=== PATIENT | male | born 1975 | race Hispanic/Latino ===

== ENCOUNTER 2016-10-21 22:32 | Emergency (ER) | payer SELFPAY ==
[~2016-10-21] VITALS: Ht 167.6 cm; Wt 78.8 kg
[~2016-10-21 22:32] MED LIST: ADDERALL12.5 MG PO; APAP/HYDRO325 MG/10 PO; BACTRIM DS1 TAB PO; CIPROFLOXACN500 MG PO; CLONAZEPAM1 MG PO; FLAGYL500 MG OR; GABAPENTIN100 MG PO; KEFLEX500 M1 PO; MEDDOSEPAK OR; MUPIROCIN2 % EX; NORCO1 TA1 PO; PHENERGAN12.5 MG/TA PO; TAM75CAP PO; TRAMADOL HCL50 MG PO; ULTRAM50 M1 PO; ZOFRAN ODT4 MG PO
[2016-10-21 23:00] LABS: HEMATOCRIT 45.9 % (39.0-50.0); HEMOGLOBIN 15.9 g/dl (14.0-18.0); IMMATURE GRANULOCYTES 0.3 % (0.0-1.0); MEAN CELL VOLUME 87.1 fL CALC (80.0-100.0); MEAN CORPUSCULAR HGB 30.2 pG CALC (26.0-32.0); MEAN CORPUSCULAR HGB CONC 34.6 g/L CALC (32.0-36.0); NEUT# 3.96 thou/uL (1.82-7.42); RED BLOOD COUNT 5.27 mill/uL (4.70-6.10); RED CELL DISTRI WIDTH 11.8 % (11.5-15.5)
[2016-10-21 23:17] LABS: ALBUMIN 4.8 g/dL (3.2-5.0); ALKALINE PHOSPHATASE 74 u/l (38-126); ANION GAP 18 (6-22 (CALC)); BILIRUBIN, TOTAL 1.1 mg/dL (0.0-1.4); BUN 22 mg/dL (9-20); BUN/CREATININE RATIO 22 (12-20 (CALC)); CARBON DIOXIDE 24 mmol/l (22-30); CHLORIDE 107 mmol/l (95-108); GFR > 60 ML/MIN (>=60 (CALC)); GFR FOR AFR.AMER. > 60 ML/MIN (>=60 (CALC)); GLUCOSE 107 mg/dL (75-110); POTASSIUM 3.7 mmol/l (3.5-5.1); SGOT/AST 20 u/l (17-59); SGPT/ALT 28 u/l (21-72); SODIUM 146 mmol/l (137-146); TOTAL PROTEIN 7.2 g/dL (6.3-8.2)
[2016-10-21 23:26] LABS: URINE BILIRUBIN - DIPSTICK NEGATIVE (NEGATIVE); URINE BLOOD DIPSTICK NEGATIVE (NEGATIVE); URINE CLARITY CLOUDY; URINE COLOR YELLOW; URINE GLUCOSE - DIPSTICK NEGATIVE (NEGATIVE); URINE KETONE NEGATIVE (NEGATIVE); URINE LEUK ESTERASE NEGATIVE (NEGATIVE); URINE NITRITE - DIPSTICK NEGATIVE (Negative); URINE PH 5.5 (4.5-8.0); URINE PROTEIN - DIPSTICK NEGATIVE (NEG-TRACE); URINE SPECIFIC GRAVITY >=1.030; URINE UROBILINOGEN - DIPSTICK 0.2 E.U./dL (0.2)
[2016-10-21] MEDS ORDERED: MOTRIN800 MG PO (23:38)
[2016-10-21 23:58] VITALS: BP 118/81
== END 2016-10-21 23:50 | disposition home or self-care (01) | DRG 556 ==
LOC: ED 22:32
PROVIDERS: Emergency Medicine
DX: M25.522 Pain in left elbow (principal); M25.561 Pain in right knee; M25.521 Pain in right elbow; M25.562 Pain in left knee; X50.3XXA Overexertion from repetitive movements, initial encounter; Y93.89 Activity, other specified; Y92.89 Other specified places as the place of occurrence of the external cause

== ENCOUNTER 2017-03-19 19:16 | Emergency (ER) | payer BC ==
[~2017-03-19] VITALS: Ht 167.6 cm; Wt 85.0 kg
[~2017-03-19 19:16] MED LIST changes: +MOTRIN800 MG PO
[2017-03-19 19:56] LABS: URINE BILIRUBIN - DIPSTICK NEGATIVE (NEGATIVE); URINE BLOOD DIPSTICK LARGE (NEGATIVE); URINE COLOR YELLOW; URINE GLUCOSE - DIPSTICK NEGATIVE (NEGATIVE); URINE KETONE NEGATIVE (NEGATIVE); URINE LEUK ESTERASE NEGATIVE (NEGATIVE); URINE NITRITE - DIPSTICK NEGATIVE (Negative); URINE PROTEIN - DIPSTICK NEGATIVE (NEG-TRACE); URINE SPECIFIC GRAVITY >=1.030; URINE UROBILINOGEN - DIPSTICK 0.2 E.U./dL (0.2)
[2017-03-19 20:04] LABS: HEMATOCRIT 47.7 % (39.0-50.0); HEMOGLOBIN 16.3 g/dl (14.0-18.0); IMMATURE GRANULOCYTES 0.1 % (0.0-1.0); MEAN CELL VOLUME 87.5 fL CALC (80.0-100.0); MEAN CORPUSCULAR HGB 29.9 pG CALC (26.0-32.0); MEAN CORPUSCULAR HGB CONC 34.2 g/L CALC (32.0-36.0); NEUT# 4.19 thou/uL (1.82-7.42); RED BLOOD COUNT 5.45 mill/uL (4.70-6.10); RED CELL DISTRI WIDTH 11.9 % (11.5-15.5)
[2017-03-19 20:17] LABS: URINE CLARITY CLEAR
[2017-03-19 20:26] LABS: URINE RBC TNTC RBC/hpf (0-5); URINE SQUAMOUS EPITHELIAL CELL FEW EPI/hpf (0-FEW)
[2017-03-19 20:30] LABS: ALKALINE PHOSPHATASE 77 u/l (38-126); AMYLASE 49 u/l (30-110); ANION GAP 19 (6-22 (CALC)); BILIRUBIN, TOTAL 1.3 mg/dL (0.0-1.4); BUN 18 mg/dL (9-20); BUN/CREATININE RATIO 18 (12-20 (CALC)); CALCIUM 9.9 mg/dL (8.4-10.2); CARBON DIOXIDE 24 mmol/l (22-30); CHLORIDE 104 mmol/l (95-108); GFR > 60 ML/MIN (>=60 (CALC)); GFR FOR AFR.AMER. > 60 ML/MIN (>=60 (CALC)); GLUCOSE 122 mg/dL (75-110); LIPASE 76 u/l (23-300); POTASSIUM 4.4 mmol/l (3.5-5.1); SGOT/AST 17 u/l (17-59); SGPT/ALT 30 u/l (21-72); SODIUM 143 mmol/l (137-146); TOTAL PROTEIN 7.6 g/dL (6.3-8.2)
[2017-03-19] MEDS ORDERED: PERCOCET 5/325M1 TAB PO (21:02)
[2017-03-19] MEDS ORDERED: IBUPROFEN600 MG PO (21:02)
[2017-03-19 21:23] VITALS: BP 121/78
== END 2017-03-19 21:23 | disposition home or self-care (01) | DRG 694 ==
LOC: ED 19:16
PROVIDERS: Emergency Medicine
DX: N20.0 Calculus of kidney (principal); R11.0 Nausea; Z87.442 Personal history of urinary calculi; R50.9 Fever, unspecified